=== PATIENT | male | born 1945 | race Two or more races ===

== ENCOUNTER 2018-10-27 10:17 | Inpatient (IN) | payer OTHER ==
[~2018-10-27] VITALS: Ht 157.5 cm; Wt 90.7 kg
[2018-10-27] MEDS ORDERED: ATENOLOL50 MG PO (11:18)
[2018-10-27] MEDS ORDERED: PANADOL EXTRA500 MG PO (11:18)
[2018-10-27] MEDS ORDERED: TRAMADOL HCL50 MG PO (11:18)
[2018-10-27] MEDS ORDERED: RELAFEN PO (11:18)
[2018-11-01] MEDS ORDERED: SYNTHROID50 MCG PO (11:21)
[2018-11-03] MEDS ORDERED: PERCOCET 5-3251 EACH PO (07:42)
[2018-11-03] MEDS ORDERED: ELIQUIS2.5 MG PO (07:42)
[2018-11-03] MEDS ORDERED: DUI500 PO (07:42)
== END 2018-11-03 17:37 | DRG 470 ==
LOC: SURH 10-31 06:58 → O/R 10-31 06:58 → SURH 10-31 07:00
PROVIDERS: ADMIT Orthopaedic Surgery
PROC: 0SRB0JZ Replacement of Left Hip Joint with Synthetic Substitute, Open Approach (ICD-10-PCS; principal; 2018-10-31 07:00)
PROC: B44GZZZ Ultrasonography of Left Lower Extremity Arteries (ICD-10-PCS; 2018-11-02)
DX: M16.12 Unilateral primary osteoarthritis, left hip (principal); D62 Acute posthemorrhagic anemia; I10 Essential (primary) hypertension; I49.8 Other specified cardiac arrhythmias; E03.8 Other specified hypothyroidism; E11.9 Type 2 diabetes mellitus without complications; E66.8 Other obesity